=== PATIENT | female | born 1965 | race African-American/Black ===

== ENCOUNTER → 2017-01-19 16:35 | Outpatient (CLI) | payer MEDICAID | END | disposition home or self-care (01) | LOC: D.MAMMO 12-27 11:00 | DX: Z12.31 Encounter for screening mammogram for malignant neoplasm of breast (principal) ==

== ENCOUNTER 2019-01-14 19:00 | Outpatient (CLI) | payer MEDICARE | END 2019-01-14 23:59 | disposition home or self-care (01) | LOC: D.MAMMO 19:00 | PROVIDERS: ATTEND Nurse Practitioner | DX: Z12.31 Encounter for screening mammogram for malignant neoplasm of breast (principal) ==

== ENCOUNTER 2020-05-18 08:00 | Outpatient (CLI) | payer MEDICARE | END 2020-05-18 10:00 | disposition home or self-care (01) | LOC: D.MAMMO 08:00 | PROVIDERS: ATTEND Nurse Practitioner | DX: Z12.31 Encounter for screening mammogram for malignant neoplasm of breast (principal) ==

== ENCOUNTER 2021-01-14 11:24 | Emergency (ER) | payer MEDICARE ==
[~2021-01-14] VITALS: Ht 157.5 cm; Wt 57.7 kg
[2021-01-14 11:32] VITALS: BP 126/72; Ht 157.5 cm; Wt 57.7 kg
[2021-01-14] MEDS ORDERED: METHOTREXATE2.5 MG PO (11:33)
== END 2021-01-14 11:57 | disposition home or self-care (01) ==
LOC: D.ER 11:24
DX: R07.89 Other chest pain (principal); G20 Parkinson's disease